=== PATIENT | male | born 1950 | race Caucasian/White ===

== ENCOUNTER 2024-01-10 13:29 | Outpatient (RCR) | payer MEDICARE, OTHER, SELFPAY ==
[2024-01-10 14:02] VITALS: BP 149/87
[2024-01-10 14:43] VITALS: BP 120/87
[2024-01-10 15:00] VITALS: BP 131/90
== END 2024-02-03 23:59 | disposition home or self-care (01) ==
LOC: OID 13:29
PROVIDERS: ATTENDING PHYSICIAN Family Medicine
DX: E83.110 Hereditary hemochromatosis (principal)
CPT/HCPCS: 99195

== ENCOUNTER 2024-09-01 14:05 | Outpatient (RCR) | payer MEDICARE, OTHER, SELFPAY ==
[2024-09-01 14:40] VITALS: BP 141/99
[2024-09-01 14:52] VITALS: BP 145/97
[2024-09-01 15:10] VITALS: BP 133/89
== END 2024-09-04 23:59 | disposition home or self-care (01) ==
LOC: OID 14:05
PROVIDERS: ATTENDING PHYSICIAN Family Medicine
DX: E83.110 Hereditary hemochromatosis (principal)
CPT/HCPCS: 99195

== ENCOUNTER 2024-12-01 10:11 | Outpatient (RCR) | payer MEDICARE, OTHER, SELFPAY ==
[2024-12-01 10:40] VITALS: BP 157/82
[2024-12-01 11:15] VITALS: BP 136/95
[2024-12-01 11:20] VITALS: BP 143/94
[2024-12-01 11:27] VITALS: BP 123/75
== END 2024-12-05 23:59 | disposition home or self-care (01) ==
LOC: OID 10:11
PROVIDERS: ATTENDING PHYSICIAN Family Medicine
DX: E83.110 Hereditary hemochromatosis (principal)
CPT/HCPCS: 99195